=== PATIENT | male | born 1945 | race Hispanic/Latino ===

== ENCOUNTER 2021-05-23 11:09 | Inpatient (IN) | payer OTHER ==
[~2021-05-23] VITALS: Ht 170.2 cm; Wt 79.4 kg
[2021-05-23] MEDS ORDERED: ACETAMINOPHEN 500 MG TABLET ONE (11:56)
[2021-05-23] MEDS ORDERED: ACETAMINOPHEN 500 MG TABLET PO SCH (12:00)
[2021-05-23 12:07] LABS: BASOPHILS % (AUTO) 0.2 % (0.0-5.0); HEMATOCRIT 39.5 % (42-54); LYMPHOCYTES % (AUTO) 17.6 % (21.0-51.0); MEAN CORPUSCULAR HEMOGLOBIN 29.4 pg (27.0-33.0); MEAN CORPUSCULAR HGB CONC 34.2 g/dL (32.0-36.0); MEAN CORPUSCULAR VOLUME 86.1 fL (79-99); MONOCYTES % (AUTO) 8.1 % (3.0-13.0); NEUTROPHILS % (AUTO) 73.7 % (40.0-77.0); PLATELET COUNT (AUTO) 154 K/uL (130-400); RED BLOOD CELL COUNT(AUTO) 4.59 MIL/uL (4.50-6.20); RED CELL DISTRIBUTION WIDTH 13.3 % (11.0-15.5); WHITE BLOOD COUNT (AUTO) 4.7 K/uL (4.8-10.8)
[2021-05-23 12:15] LABS: CREATININE 0.8 mg/dL (0.5-1.5); POTASSIUM 3.7 mmol/L (3.5-5.1)
[2021-05-23 12:19] LABS: ALBUMIN 3.2 g/dL (3.5-5.0); BILIRUBIN,TOTAL 0.6 mg/dL (0.2-1.0); TOTAL PROTEIN, SERUM 7.2 g/dL (6.0-8.3)
[2021-05-23 12:26] LABS: BILIRUBIN,URINE Small (NEGATIVE); COLOR,URINE Dark Yellow (YELLOW); GLUCOSE, URINE (UA) Negative (NEGATIVE); KETONES,URINE 15 mg/dL (NEGATIVE); LEUKOCYTE ESTERASE ,URINE Trace (NEGATIVE); NITRATE,URINE Negative (NEGATIVE); OCCULT BLOOD,URINE Negative (NEGATIVE); PROTEIN,URINE 300 mg/dL (NEGATIVE)
[2021-05-23] MEDS ORDERED: DEXAMETHASONE SOD PHOSPHATE 4 MG/ML 1ML VIAL IVP ONE (12:30)
[2021-05-23] MEDS ORDERED: CEFTRIAXONE 1G VIAL IVP ONE (12:30)
[2021-05-23] MEDS ORDERED: AZITHROMYCIN 250 MG TABLET PO ONE ×2 (12:30→12:52)
[2021-05-23 12:34] LABS: APPEARANCE,URINE SLIGHTLY CLOUDY (CLEAR)
[2021-05-23] MEDS ORDERED: DEXAMETHASONE SOD PHOSPHATE 4 MG/ML 1ML VIAL ONE (12:51)
[2021-05-23] MEDS ORDERED: CEFTRIAXONE 1G VIAL ONE (12:52)
[2021-05-23 13:14] LABS: BACTERIA,URINE Few /HPF (None Seen); RBC,URINE 0-1 /HPF (0-1); WBC,URINE 0-1 /HPF (0-1)
[2021-05-23 13:15] LABS: MUCUS,URINE Few LPF (None Seen); SQUAMOUS EPITHELIAL CELL,UR 0-2 /HPF (0-2)
[2021-05-23] MEDS ORDERED: PHARMACY COMMUNICATION MISC SCH (14:00)
[2021-05-23 14:32] LABS: HEMOGLOBIN A1C 8.3 % (4.0-6.0)
[2021-05-23] MEDS ORDERED: CARV6.25 PO (16:17)
[2021-05-23] MEDS ORDERED: METF-444 PO (16:18)
[2021-05-23] MEDS ORDERED: CLON0.1T PO (16:19)
[2021-05-23] MEDS: INSULIN HUMULIN R 100 UNIT/ML 3ML SQ SCH ×2 (16:30→21:40)
[2021-05-23] MEDS ORDERED: COMPOUND IV REFRIGERATED 1 EACH IVSOLN MISC PRN (20:00)
[2021-05-23] MEDS ORDERED: REMDESIVIR (EUA) 520 200 MG in 0.9% NACL 250ML 250 ML IV ONE (20:00)
[2021-05-23] MEDS ORDERED: BENZONATATE 100 MG CAPSULE PO PRN (21:00)
[2021-05-23] MEDS: CARVEDILOL 6.25 MG TABLET PO SCH (21:40)
[2021-05-24 06:07] LABS: HEMATOCRIT 39.7 % (42-54); LYMPHOCYTES % (AUTO) 18.5 % (21.0-51.0); MEAN CORPUSCULAR HEMOGLOBIN 28.6 pg (27.0-33.0); MEAN CORPUSCULAR HGB CONC 33.2 g/dL (32.0-36.0); MEAN CORPUSCULAR VOLUME 86.1 fL (79-99); MONOCYTES % (AUTO) 8.3 % (3.0-13.0); NEUTROPHILS % (AUTO) 72.7 % (40.0-77.0); PLATELET COUNT (AUTO) 187 K/uL (130-400); RED BLOOD CELL COUNT(AUTO) 4.61 MIL/uL (4.50-6.20); RED CELL DISTRIBUTION WIDTH 13.2 % (11.0-15.5); WHITE BLOOD COUNT (AUTO) 4.3 K/uL (4.8-10.8)
[2021-05-24 06:27] LABS: BILIRUBIN,TOTAL 0.4 mg/dL (0.2-1.0); CREATININE 0.9 mg/dL (0.5-1.5); CRP QUANTITATIVE 113.9 mg/L (0.00-9.0); POTASSIUM 3.6 mmol/L (3.5-5.1)
[2021-05-24] MEDS: INSULIN HUMULIN R 100 UNIT/ML 3ML SQ SCH ×4 (08:33→20:03)
[2021-05-24] MEDS: DEXAMETHASONE SOD PHOSPHATE 4 MG/ML 1ML VIAL IV SCH (08:33)
[2021-05-24] MEDS: CARVEDILOL 6.25 MG TABLET PO SCH ×2 (08:33→19:51)
[2021-05-24] MEDS: ENOXAPARIN SODIUM 40 MG/0.4 ML SYRINGE SQ SCH (08:34)
[2021-05-24] MEDS: PANTOPRAZOLE 40 MG TAB DR PO SCH (08:34)
[2021-05-24] MEDS: REMDESIVIR LABS MISC SCH (08:38)
[2021-05-24] MEDS ORDERED: LISINOPRIL 40 MG TABLET PO SCH (10:00)
[2021-05-24] MEDS ORDERED: GUAIFENESIN-DM 200/20 MG 10 ML PO PRN (15:30)
[2021-05-24 16:45] VITALS: BP 155/69
[2021-05-24] MEDS: REMDESIVIR (EUA) 520 100 MG in 0.9% NACL 250ML 250 ML IV SCH (19:52)
[2021-05-24 19:53] VITALS: BP 171/77
[2021-05-24] MEDS ORDERED: INSULIN GLARGINE 100 UNITS/ML 10 ML VIAL SQ SCH (21:00)
[2021-05-24 23:23] VITALS: BP 159/69
[2021-05-25 03:45] VITALS: BP 136/60
[2021-05-25 05:44] LABS: BASOPHILS % (AUTO) 0.1 % (0.0-5.0); HEMATOCRIT 38.5 % (42-54); LYMPHOCYTES % (AUTO) 14.3 % (21.0-51.0); MEAN CORPUSCULAR VOLUME 85.4 fL (79-99); MONOCYTES % (AUTO) 6.6 % (3.0-13.0); NEUTROPHILS % (AUTO) 78.3 % (40.0-77.0); PLATELET COUNT (AUTO) 208 K/uL (130-400); RED BLOOD CELL COUNT(AUTO) 4.51 MIL/uL (4.50-6.20); RED CELL DISTRIBUTION WIDTH 13.2 % (11.0-15.5); WHITE BLOOD COUNT (AUTO) 6.8 K/uL (4.8-10.8)
[2021-05-25] MEDS: REMDESIVIR LABS MISC SCH (06:00)
[2021-05-25] MEDS: INSULIN HUMULIN R 100 UNIT/ML 3ML SQ SCH ×5 (06:15→21:04)
[2021-05-25 06:31] LABS: BILIRUBIN,TOTAL 0.4 mg/dL (0.2-1.0); CREATININE 0.7 mg/dL (0.5-1.5); CRP QUANTITATIVE 59.4 mg/L (0.00-9.0); POTASSIUM 3.5 mmol/L (3.5-5.1); TOTAL PROTEIN, SERUM 6.4 g/dL (6.0-8.3)
[2021-05-25 08:00] VITALS: BP 157/78
[2021-05-25] MEDS: DEXAMETHASONE SOD PHOSPHATE 4 MG/ML 1ML VIAL IV SCH (09:30)
[2021-05-25] MEDS: CARVEDILOL 6.25 MG TABLET PO SCH ×2 (09:31→20:11)
[2021-05-25] MEDS: LISINOPRIL 40 MG TABLET PO SCH (09:31)
[2021-05-25] MEDS: PANTOPRAZOLE 40 MG TAB DR PO SCH (09:31)
[2021-05-25] MEDS: ENOXAPARIN SODIUM 40 MG/0.4 ML SYRINGE SQ SCH ×2 (09:32→20:12)
[2021-05-25 12:00] VITALS: BP 168/77
[2021-05-25] MEDS ORDERED: HYDROCHLOROTHIAZIDE 25 MG TABLET PO SCH (15:00)
[2021-05-25] MEDS ORDERED: LABETALOL 20MG VIAL IV PRN (15:30)
[2021-05-25 16:00] VITALS: BP 151/68
[2021-05-25] MEDS ORDERED: LABETALOL 20MG SYG IV PRN (16:00)
[2021-05-25 20:00] VITALS: BP 161/71
[2021-05-25] MEDS: REMDESIVIR (EUA) 520 100 MG in 0.9% NACL 250ML 250 ML IV SCH (20:12)
[2021-05-25] MEDS ORDERED: INSULIN GLARGINE 100 UNITS/ML 10 ML VIAL SQ SCH (21:00)
[2021-05-26] VITALS: BP 158/63
[2021-05-26 04:00] VITALS: BP_SYST 122; BP_SYST 178; BP_DIAS 61; BP_DIAS 67
[2021-05-26 05:00] LABS: BASOPHILS % (AUTO) 0.1 % (0.0-5.0); HEMATOCRIT 38.4 % (42-54); MEAN CORPUSCULAR HEMOGLOBIN 28.7 pg (27.0-33.0); MEAN CORPUSCULAR HGB CONC 33.6 g/dL (32.0-36.0); MEAN CORPUSCULAR VOLUME 85.3 fL (79-99); NEUTROPHILS % (AUTO) 79.3 % (40.0-77.0); PLATELET COUNT (AUTO) 222 K/uL (130-400); RED CELL DISTRIBUTION WIDTH 13.2 % (11.0-15.5); WHITE BLOOD COUNT (AUTO) 6.9 K/uL (4.8-10.8)
[2021-05-26 05:28] LABS: ALBUMIN 2.9 g/dL (3.5-5.0); BILIRUBIN,TOTAL 0.4 mg/dL (0.2-1.0); CREATININE 0.7 mg/dL (0.5-1.5); CRP QUANTITATIVE 31.4 mg/L (0.00-9.0); POTASSIUM 3.4 mmol/L (3.5-5.1); TOTAL PROTEIN, SERUM 6.2 g/dL (6.0-8.3)
[2021-05-26] MEDS: REMDESIVIR LABS MISC SCH (05:45)
[2021-05-26 05:51] VITALS: BP 167/69
[2021-05-26] MEDS: INSULIN HUMULIN R 100 UNIT/ML 3ML SQ SCH ×4 (06:21→11:42)
[2021-05-26 08:00] VITALS: BP 157/70
[2021-05-26] MEDS: DEXAMETHASONE SOD PHOSPHATE 4 MG/ML 1ML VIAL IV SCH (08:48)
[2021-05-26] MEDS: ENOXAPARIN SODIUM 40 MG/0.4 ML SYRINGE SQ SCH (08:49)
[2021-05-26] MEDS: LISINOPRIL 40 MG TABLET PO SCH (08:49)
[2021-05-26] MEDS: PANTOPRAZOLE 40 MG TAB DR PO SCH (08:49)
[2021-05-26] MEDS: CARVEDILOL 6.25 MG TABLET PO SCH (08:54)
[2021-05-26] MEDS ORDERED: HYDROCHLOROTHIAZIDE 25 MG TABLET PO SCH (09:00)
[2021-05-26 12:00] VITALS: BP 150/65
[2021-05-26] MEDS ORDERED: PANT40TA PO (13:22)
[2021-05-26] MEDS ORDERED: HYDR25TA PO (13:22)
[2021-05-26] MEDS ORDERED: APIX2.5T PO (13:22)
[2021-05-26] MEDS ORDERED: DEXA4TAB PO (13:22)
[2021-05-26] MEDS ORDERED: LISI40TA9 PO (13:22)
[2021-05-26] MEDS ORDERED: NIFE-40 PO (13:22)
[2021-05-26] MEDS ORDERED: CARV6.2579 PO (13:22)
[2021-05-26] MEDS ORDERED: METF-445 PO (13:22)
[2021-05-26] MEDS ORDERED: INSU3INS3 SQ (13:22)
[2021-05-26] MEDS ORDERED: PEN1DIS.48 MC (13:22)
[2021-05-26] MEDS ORDERED: NIFEDIPINE ER 30 MG TAB PO SCH (13:30)
[2021-05-27] MEDS ORDERED: NIFEDIPINE ER 30 MG TAB PO SCH (09:00)
== END 2021-05-26 15:00 | disposition home or self-care (01) | DRG 177 ==
LOC: EDH 11:09 → EDHIP 13:36 → 4AH 05-24 16:53
PROVIDERS: ADMIT Internal Medicine; ATTEND Internal Medicine
PROC: XW033E5 Introduction of Remdesivir Anti-infective into Peripheral Vein, Percutaneous Approach, New Technology Group 5 (ICD-10-PCS; principal; 2021-05-23)
DX: U07.1 COVID-19 (principal); J12.82 Pneumonia due to coronavirus disease 2019; J96.01 Acute respiratory failure with hypoxia; N17.9 Acute kidney failure, unspecified; E87.1 Hypo-osmolality and hyponatremia; D68.69 Other thrombophilia; I10 Essential (primary) hypertension; E11.9 Type 2 diabetes mellitus without complications; E78.00 Pure hypercholesterolemia, unspecified; R53.81 Other malaise; I16.0 Hypertensive urgency; E78.5 Hyperlipidemia, unspecified; Z78.9 Other specified health status; Z83.3 Family history of diabetes mellitus
CPT/HCPCS: 36415; 71045; 80053; 81001; 82150; 82948; 83036; 83690; 84145; 84484; 85025; 85378; 86140; 87040; 87088; 87635; 87804; 93005; 93970; 94760; A4606; C9803; G0378; J0696; J1100; J1650; J1815; J7050